=== PATIENT | male | born 1955 | race Two or more races ===

== ENCOUNTER 2020-05-31 08:01 | Day surgery (SDC) | payer OTHER | END 2020-05-31 14:52 | disposition home or self-care (01) | LOC: AMB-ENDOS 08:01 | PROVIDERS: ATTEND Surgery | DX: C20 Malignant neoplasm of rectum (principal); D12.3 Benign neoplasm of transverse colon; Z20.822 Contact with and (suspected) exposure to COVID-19 ==

== ENCOUNTER 2020-09-27 08:54 | Day surgery (SDC) | payer OTHER | END 2020-09-27 17:20 | disposition home or self-care (01) | LOC: AMB-ENDOS 08:54 | PROVIDERS: ATTEND Surgery | DX: K62.89 Other specified diseases of anus and rectum (principal); Z20.822 Contact with and (suspected) exposure to COVID-19 ==